=== PATIENT | female | born 1945 | race Caucasian/White ===

== ENCOUNTER → 2017-11-02 | Outpatient (CLI) | payer OTHER ==
[~2017-11-02] MED LIST: LIPITOR10 MG PO; MACROBID 100 M100 M1 PO; TRIAMTERENE-HC1 EAC2 PO
== END ==
LOC: RAD 09:10
DX: Z12.31 Encounter for screening mammogram for malignant neoplasm of breast (principal)

== ENCOUNTER → 2017-11-04 | Outpatient (CLI) | payer OTHER | LOC: ULTRA 12:16 | DX: M79.605 Pain in left leg (principal); M79.89 Other specified soft tissue disorders ==

== ENCOUNTER → 2018-11-03 | Outpatient (CLI) | payer OTHER | LOC: EDSTATUS 10:10 → CAT 10:10 | DX: Z13.6 Encounter for screening for cardiovascular disorders (principal); E78.00 Pure hypercholesterolemia, unspecified; I25.10 Atherosclerotic heart disease of native coronary artery without angina pectoris ==

== ENCOUNTER → 2019-02-07 | Outpatient (CLI) | payer OTHER | LOC: RAD 14:01 | DX: Z12.31 Encounter for screening mammogram for malignant neoplasm of breast (principal) ==

== ENCOUNTER → 2020-03-25 | Outpatient (CLI) | payer OTHER | LOC: BC 09:58 | PROVIDERS: ATTEND Family Medicine | DX: Z12.31 Encounter for screening mammogram for malignant neoplasm of breast (principal) ==

== ENCOUNTER → 2020-04-26 | Outpatient (CLI) | payer OTHER ==
[~2020-04-26] MED LIST changes: +ASA81BEC PO; +CLOPIDOGREL75 MG PO; +LIPITOR40 MG PO
== END ==
LOC: SJCVCIMAG 10:09 → SJCVC 10:09
PROVIDERS: ATTEND Internal Medicine Cardiovascular Disease
DX: I87.2 Venous insufficiency (chronic) (peripheral) (principal); I10 Essential (primary) hypertension; E78.00 Pure hypercholesterolemia, unspecified; I25.10 Atherosclerotic heart disease of native coronary artery without angina pectoris; R93.1 Abnormal findings on diagnostic imaging of heart and coronary circulation; R53.83 Other fatigue; I83.93 Asymptomatic varicose veins of bilateral lower extremities; M19.90 Unspecified osteoarthritis, unspecified site; Z79.82 Long term (current) use of aspirin; Z82.49 Family history of ischemic heart disease and other diseases of the circulatory system; Z79.899 Other long term (current) drug therapy; Z87.891 Personal history of nicotine dependence

== ENCOUNTER 2020-05-07 06:49 | Observation (INO) | payer OTHER ==
[~2020-05-07] VITALS: Ht 154.9 cm; Wt 86.2 kg
[~2020-05-07 06:49] MED LIST changes: -ASA81BEC PO; -CLOPIDOGREL75 MG PO; -LIPITOR40 MG PO
[2020-05-07 07:11] VITALS: BP 148/71
[2020-05-07 07:37] LABS: HEMATOCRIT 44.9 % (37.0-47.0); MCHC 33.5 g/dL (28.0-37.0); MCV 92.8 fL (80.0-100.0); RBC 4.84 mil/uL (4.20-5.00); RDW 13.4 % (10.5-14.5); WBC 7.6 thou/uL (4.0-11.0)
--- NOTE | 2020-05-07 07:41 | EKG ---
[facility] [place] [address] ELECTROCARDIOGRAM REPORT Name: ROSA ISELA BEASLEY Room #: REG [facility]#: [id number] Admission: 05/07/20 Attend Phys: Trevor Colbert MD, Discharge: Date of : 43 Report #: [id number] THIS REPORT FOR: cc: Prabhjot Montenegro MD, Neal A. 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
[2020-05-07] MEDS ORDERED: ASA81BEC PO (07:53)
[2020-05-07 08:20] LABS: CALCIUM 9.4 mg/dL (8.5-10.1); POTASSIUM 3.5 mmol/L (3.5-5.1)
[2020-05-07 16:10] VITALS: BP 116/65
--- NOTE | 2020-05-07 16:45 | NUR ---
PATIENT TO THE UNIT POST CATH. VSS - GROIN C/D/I. PT UP TO THE BATHROOM WITH STBY ASSIST - GROIN HAS REMAINED STABLE. ASSESSMENT CHARTED - KISHAN DIET AND FLIUDS. NO CO'S OF PAIN OR NAUSEA. IV FLUIDS RUNNING ORDERED. PT WITH NO CO'S AT THE PRESENT TIME.
--- NOTE | 2020-05-07 17:47 | CATHLAB ---
[facility] [place] [address] INVASIVE PROCEDURE REPORT Name: ROSA ISELA BEASLEY Room #: 200-I REG [facility]#: [id number] Admission: 05/07/20 Attend Phys: Trevor Colbert MD, Discharge: Date of : 43 Report #: [id number] THIS REPORT FOR: cc: Prabhjot Montenegro MD, Neal A. MD Mancuso, Gerald M. MD [facility] ~ APPROVED REPORT Study performed: 05/07/2020 07:39:32 Patient Details Patient Status: Out-Patient Room #: The patient is a 75 year-old female Event Personnel Trevor Colbert Control Systems Drafting Officer, Derrell Mcdonald RN, Michelle Ace RTR, ARIELLA Scrub, Yahir Schrader RTR Scrub, Ji Grossman RTR Monitor Procedures Performed Art Access - R femoral artery* Left Heart Cath w/or w/o Coronaries 7116257 [facility] Aortogram Abdominal Peripheral Angio 239327 TROY Place w/wo Plasty Single DIAG 296754 75529 Initial Mod Sed Same Phys/QHP Gr5y 803364 73663 Mod Sed Same Phys/QHP Ea 631517 Hemostasis w/ Mynx Indication Positive stress test, Chest pain Procedure Narrative The Right Groin^ was infiltrated with 1% Lidocaine subcutaneous anesthesia. A PINNACLE 6FR Sheath #[id number] sheath was inserted into the RFA^. Coronary angiography was performed using coronary diagnostic catheters. The right coronary system was accessed and visualized with a JR4 catheter. The left coronary system was accessed and visualized with a JL4 catheter. The left ventricle was accessed and visualized with a PIGTAIL catheter. Left ventriculogram was performed in 30 degree projection. An aortogram of the abdominal aorta was performed. Closure device was deployed with a 6 Fr MYNXGRIP 6/7F #[id number]. The patient tolerated the procedure well and there were no complications associated with the procedure. There was no hematoma. Intraoperative Conscious Sedation [facility] [address] [place] [address] INVASIVE PROCEDURE REPORT Name: ROSA ISELA BEASLEY Room #: 200-I [facility]#: [id number] Admission: 05/07/20 Attend Phys: Trevor Colbert, Discharge: Date of : 43 Report #: [id number] Sedation start time: 08:39 Case end Time: 09:34 Fentanyl 100 mcg Versed 2 mg Fluoro Time: 7.30 minutes Dose: DAP 8106.30 cGycm2 1199 mGy Contrast Type and Amount: Visipaque 145 ml Hemodynamics The aortic pressure is 149/63 mmHg with a mean of 68 mmHg. The left ventricular pressure is 151/27 mmHg with a mean of mmHg. The left ventricular end diastolic pressure is 45 mmHg. PCI Technique Lesion Percutaneous coronary intervention was performed on the first diagnonal branch segment. A LAUNCHER 6FR EBU 3.75 #[id number] Guide Catheter was used to engage the ostium. A Luge Wire .014 x 182CM #[id number] Interventional Guidewire was used to cross the lesion. STENT DEPLOYMENT A drug-eluting stent RESOLUTE OSWALDO OTW 2.25 X 8 #[id number] was inserted and inflated up to 8.00atm for 20seconds. Additional Inflation: 10.00atm for 27seconds. Conclusion #1. Successful PTCA stent of the proximal diagonal branch with moderate distribution placement of a 2.25 x 8 resolute stent postdilated 2.3 mm ANDRE grade III flow. #2 left main mildly disease giving rise to LAD and circumflex. #3 the LAD extends to the apex is only mild distal irregularity no occlusive disease #4 circumflex OM is large dominant vessel with no occlusive disease #5 small nondominant right coronary artery with no disease #6 normal left jugular size and systolic function EF 60%. #7 normal abdominal aortogram revealing normal caliber aorta no aneurysm. Recommendations and plan: Continue aggressive risk factor modification dual antiplatelet therapy initiated for coronary intervention. Transfer to CCU to follow post stent protocol. <ELECTRONICALLY SIGNED> By: Trevor Colbert MD, [facility] 05/07/201745 45 45 Trevor Colbert MD, FACC /INF
[2020-05-07 19:28] VITALS: BP 120/60
--- NOTE | 2020-05-08 03:18 | NUR ---
ASSESSMENTS CHARTED. MEDS CHARTED GIVEN. PATIENT RESTING IN BED POST STENT PLACEMENT IN THE LEAD ENGINEER. STENT TO PROXIMAL DIAGONAL. RIGHT GROIN SITE IS CLEAN, DRY INTACT, AND SOFT. MINXX CLOSURE. RECEIVED I BAG NS POST PROCEDURE. OFF BEDREST. FALL PRECAUTIONS IN PLACE DURING SHIFT. DENIED PAIN.
[2020-05-08 04:00] VITALS: BP 122/61
[2020-05-08 06:09] LABS: HEMATOCRIT 41.5 % (37.0-47.0); HEMOGLOBIN 13.9 gm/dL (12.0-15.0); MCH 30.8 pg (26.0-34.0); MCHC 33.4 g/dL (28.0-37.0); RBC 4.51 mil/uL (4.20-5.00); RDW 13.7 % (10.5-14.5); WBC 12.7 thou/uL (4.0-11.0)
[2020-05-08 06:38] LABS: ALBUMIN 3.1 g/dL (3.4-5.0); CALCIUM 8.5 mg/dL (8.5-10.1); POTASSIUM 3.4 mmol/L (3.5-5.1); TOTAL BILIRUBIN 0.4 mg/dL (0.2-1.0); TOTAL PROTEIN 6.5 g/dL (6.4-8.2); TROPONIN-I 0.07 ng/mL (<0.06)
[2020-05-08] MEDS ORDERED: LIPITOR40 MG PO (07:07)
[2020-05-08] MEDS ORDERED: CLOPIDOGREL75 MG PO (07:07)
[2020-05-08 08:00] VITALS: BP 129/66
--- NOTE | 2020-05-08 08:54 | EKG ---
[facility] [place] [address] ELECTROCARDIOGRAM REPORT Name: ROSA ISELA BEASLEY Room #: 200-I ADM [facility] M.R.#: [id number] Admission: 05/07/20 Attend Phys: Trevor Colbert MD, Discharge: Date of : 43 Report #: [id number] THIS REPORT FOR: cc: Prabhjot Montenegro MD, Neal A. 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 : 1945 Requested By: Gerda Butcher Order Number: [id number] MD: Salomon Dominguez Measurements Intervals [place] Rate: 71 P: 79 [place]: 157 QRS: 73 QRSD: 86 T: 68 QT: 382 QTc: 416 Interpretive Statements Sinus rhythm Low voltage Poor R wave progression Compared to ECG 05/07/2020 07:35:23 No significant change was found Electronically Signed On 05-08-2020 8:54:32 CDT by Salomon Dominguez [email or web address] <ELECTRONICALLY SIGNED> By: Salomon Dominguez MD, [facility] 05/08/20 0854 Salomon Dominguez MD, [facility] /EPI
[2020-05-08 09:53] VITALS: BP 134/59
--- NOTE | 2020-05-08 10:30 | NUR ---
ASSUMED CARE AT CHANGE OF SHIFT. PT ALERTX4, FROM HOME, REMAINS ON RA, DENIES SOB, DENIES CHEST PAIN, UP WITH CANE STAND BY. RIGHT GROIN SIGHT C/D/I. NSR ON TELE. HOME WITH SELF CARE. EDUCATED TO FOLLOW POST CARDIAC STENT PROCEDURE CARE. IV AND TELE REMOVED.
[2020-05-08 10:34] VITALS: BP 134/59
== END 2020-05-08 11:55 | disposition home or self-care (01) ==
LOC: CATH 06:49 → 2N 06:49 → CATH 08:55 → 2N 10:08 → CATH 10:09 → 2N 10:09 → CATH 13:38 → 2N 05-08 11:55
PROVIDERS: Nurse Practitioner Adult Health; ADMIT Internal Medicine Cardiovascular Disease; ATTEND Internal Medicine Cardiovascular Disease
DX: I25.10 Atherosclerotic heart disease of native coronary artery without angina pectoris (principal); I10 Essential (primary) hypertension; E78.5 Hyperlipidemia, unspecified; E78.00 Pure hypercholesterolemia, unspecified; Z79.899 Other long term (current) drug therapy

== ENCOUNTER → 2020-06-21 | Outpatient (CLI) | payer OTHER ==
[~2020-06-21] MED LIST changes: +ASA81BEC PO; +CLOPIDOGREL75 MG PO; +LIPITOR40 MG PO
== END ==
LOC: SJCVC 15:37
PROVIDERS: ATTEND Internal Medicine Cardiovascular Disease
DX: I25.10 Atherosclerotic heart disease of native coronary artery without angina pectoris (principal); R07.9 Chest pain, unspecified; E78.00 Pure hypercholesterolemia, unspecified; I10 Essential (primary) hypertension; I83.93 Asymptomatic varicose veins of bilateral lower extremities; M19.90 Unspecified osteoarthritis, unspecified site; Z95.5 Presence of coronary angioplasty implant and graft; Z79.82 Long term (current) use of aspirin; Z79.899 Other long term (current) drug therapy; Z87.891 Personal history of nicotine dependence

== ENCOUNTER → 2021-01-07 | Outpatient (CLI) | payer OTHER | LOC: SJCVC 13:55 | PROVIDERS: ATTEND Internal Medicine Cardiovascular Disease | DX: I25.10 Atherosclerotic heart disease of native coronary artery without angina pectoris (principal); I10 Essential (primary) hypertension; E78.00 Pure hypercholesterolemia, unspecified; M19.90 Unspecified osteoarthritis, unspecified site; Z95.5 Presence of coronary angioplasty implant and graft; Z88.5 Allergy status to narcotic agent; Z88.8 Allergy status to other drugs, medicaments and biological substances; Z88.2 Allergy status to sulfonamides; Z79.82 Long term (current) use of aspirin; Z79.899 Other long term (current) drug therapy; Z87.891 Personal history of nicotine dependence; Z82.49 Family history of ischemic heart disease and other diseases of the circulatory system ==

== ENCOUNTER → 2021-05-29 | Outpatient (CLI) | payer OTHER | LOC: RAD 14:06 | PROVIDERS: ATTEND Family Medicine | DX: Z12.31 Encounter for screening mammogram for malignant neoplasm of breast (principal) ==

== ENCOUNTER → 2021-09-09 | Outpatient (CLI) | payer OTHER | LOC: SJCVCIMAG 09:40 | PROVIDERS: ATTEND Internal Medicine Cardiovascular Disease | DX: I65.22 Occlusion and stenosis of left carotid artery (principal); I25.10 Atherosclerotic heart disease of native coronary artery without angina pectoris; E78.00 Pure hypercholesterolemia, unspecified; I10 Essential (primary) hypertension; R93.1 Abnormal findings on diagnostic imaging of heart and coronary circulation; I65.23 Occlusion and stenosis of bilateral carotid arteries; Z87.891 Personal history of nicotine dependence; Z72.89 Other problems related to lifestyle; Z79.82 Long term (current) use of aspirin; Z79.899 Other long term (current) drug therapy; Z88.8 Allergy status to other drugs, medicaments and biological substances; Z88.2 Allergy status to sulfonamides; Z82.49 Family history of ischemic heart disease and other diseases of the circulatory system ==